=== PATIENT | male | born 1990 | race Caucasian/White ===

== ENCOUNTER 2023-04-17 08:16 | Emergency (ER) | payer SELFPAY ==
[~2023-04-17] VITALS: Ht 182.9 cm; Wt 81.6 kg
[2023-04-17] MEDS ORDERED: KETOROLAC TROMETHAMINE 15 MG/ML VIAL ONE (08:51)
[2023-04-17] MEDS ORDERED: KETOROLAC TROMETHAMINE INJ 30 MG/ML VIAL IV ONE (09:00)
[2023-04-17] MEDS ORDERED: IV NS 0.9% 1,000 ML BAG IV ONE (09:00)
[2023-04-17 09:14] LABS: BASOPHILS % (AUTO) 0.2 % (0.0-2.0); EOSINOPHILS # (AUTO) 0.1 K/uL (0.0-0.7); EOSINOPHILS % (AUTO) 1.2 % (0.0-6.0); HEMATOCRIT 45 % (39-51); HEMOGLOBIN 15.1 g/dL (13.5-17.5); LYMPHOCYTES # (AUTO) 1.5 K/uL (0.8-4.8); LYMPHOCYTES % (AUTO) 18.9 % (20.0-44.0); MEAN CORPUSCULAR HEMOGLOBIN 28 PG (26.0-33.0); MEAN CORPUSCULAR HGB CONC 34 g/dl (31.0-36.0); MEAN CORPUSCULAR VOLUME 83 fL (80-96); MONOCYTES # (AUTO) 0.6 K/uL (0.1-1.30); MONOCYTES % (AUTO) 7.5 % (2.0-12.0); NEUTROPHILS # (AUTO) 5.9 K/uL (1.8-8.9); NEUTROPHILS % (AUTO) 72.2 % (43.0-81.0); PLATELET COUNT (AUTO) 297 K/uL (150-450); RED BLOOD CELL COUNT(AUTO) 5.35 MIL/uL (4.5-6.0); RED CELL DISTRIBUTION WIDTH 13.6 % (11.5-15.0); WHITE BLOOD COUNT (AUTO) 8.1 K/uL (4.3-11.0)
[2023-04-17 09:24] LABS: CALCIUM, SERUM 9.4 mg/dL (8.5-10.1); POTASSIUM 3.8 mmol/L (3.5-5.1)
[2023-04-17 09:29] LABS: ALBUMIN 4.4 g/dL (3.4-5.0); BILIRUBIN,DIRECT 0.2 mg/dL (0.0-0.2); BILIRUBIN,TOTAL 0.9 mg/dL (0.2-1.0); TOTAL PROTEIN, SERUM 8.3 g/dL (6.4-8.2)
[2023-04-17] MEDS ORDERED: TAMS-12 PO (09:52)
[2023-04-17] MEDS ORDERED: TAMSULOSIN 0.4 MG CAP.SR.24H PO ONE (10:00)
[2023-04-17] MEDS ORDERED: TAMSULOSIN 0.4 MG CAP.SR.24H ONE (10:03)
[2023-04-17 10:19] VITALS: BP 133/76; TEMP 97.9; O2SAT 100
== END 2023-04-17 10:21 | disposition home or self-care (01) ==
LOC: ER 08:30
DX: N20.0 Calculus of kidney (principal); Z60.2 Problems related to living alone
CPT/HCPCS: 99285; 74176; 96374; 96361; 85025; 80048; 83690; 80076; 36415; J7030; J1885

== ENCOUNTER 2023-04-19 13:18 | Emergency (ER) | payer MEDICAID ==
[~2023-04-19] VITALS: Ht 182.9 cm; Wt 81.6 kg
[~2023-04-19 13:18] MED LIST: TAMS-12 PO
[2023-04-19] MEDS ORDERED: KETOROLAC TROMETHAMINE INJ 30 MG/ML VIAL ONE ×2 (14:46→15:59)
[2023-04-19] MEDS ORDERED: KETOROLAC TROMETHAMINE INJ 30 MG/ML VIAL IV ONE ×2 (15:00→16:00)
[2023-04-19 15:12] LABS: BASOPHILS % (AUTO) 0.3 % (0.0-2.0); EOSINOPHILS % (AUTO) 0.6 % (0.0-6.0); HEMATOCRIT 42 % (39-51); HEMOGLOBIN 13.6 g/dL (13.5-17.5); LYMPHOCYTES # (AUTO) 1.5 K/uL (0.8-4.8); LYMPHOCYTES % (AUTO) 18.5 % (20.0-44.0); MEAN CORPUSCULAR HEMOGLOBIN 27 PG (26.0-33.0); MEAN CORPUSCULAR HGB CONC 33 g/dl (31.0-36.0); MEAN CORPUSCULAR VOLUME 84 fL (80-96); MONOCYTES # (AUTO) 0.6 K/uL (0.1-1.30); NEUTROPHILS % (AUTO) 73.6 % (43.0-81.0); PLATELET COUNT (AUTO) 259 K/uL (150-450); RED BLOOD CELL COUNT(AUTO) 4.99 MIL/uL (4.5-6.0); RED CELL DISTRIBUTION WIDTH 13.4 % (11.5-15.0); WHITE BLOOD COUNT (AUTO) 8.1 K/uL (4.3-11.0)
[2023-04-19] MEDS ORDERED: IV NS 0.9% 1,000 ML IV ONE (16:00)
[2023-04-19 16:24] LABS: ALBUMIN 3.8 g/dL (3.4-5.0); BILIRUBIN,DIRECT 0.2 mg/dL (0.0-0.2); BILIRUBIN,TOTAL 0.7 mg/dL (0.2-1.0); CALCIUM, SERUM 9.6 mg/dL (8.5-10.1); POTASSIUM 4.2 mmol/L (3.5-5.1)
[2023-04-19 16:25] LABS: APPEARANCE,URINE CLEAR (CLEAR); BILIRUBIN,URINE NEGATIVE (NEGATIVE); BLOOD, URINE 1+ Ery/uL (NEGATIVE); COLOR,URINE YELLOW (YELLOW); KETONES,URINE NEGATIVE (NEGATIVE); LEUKOCYTE ESTERASE ,URINE 2+ (NEGATIVE); NITRITE, URINE NEGATIVE (NEGATIVE); PROTEIN,URINE NEGATIVE (NEGATIVE); UGLUCOSE NEGATIVE (NEGATIVE); UROBILINOGEN,URINE 0.2 EU/dL (0.2)
[2023-04-19] MEDS ORDERED: TAMS-12 PO (16:25)
[2023-04-19] MEDS ORDERED: IBUP-1957 PO (16:25)
[2023-04-19] MEDS ORDERED: ACETAMINOPHEN 325 MG TABLET PO PRN (17:00)
[2023-04-19] MEDS ORDERED: ONDANSETRON HCL/PF 4 MG/2 ML VIAL IVP PRN (17:00)
[2023-04-19] MEDS ORDERED: MAG HYDROX/AL HYDROX/SIMETH 30 ML UDC PO PRN (17:00)
[2023-04-19] MEDS ORDERED: MAGNESIUM HYDROXIDE 30 ML UDC PO PRN (17:00)
[2023-04-19] MEDS ORDERED: IV NS 0.9% 1,000 ML IV PRN (17:00)
[2023-04-19] MEDS ORDERED: ZOLPIDEM TARTRATE 5 MG TABLET PO PRN (17:00)
[2023-04-19] MEDS ORDERED: Z GUARD REMEDY 4 OZ OINT TP PRN (17:00)
[2023-04-19] MEDS ORDERED: CEFTRIAXONE 1 G in IV D5W 50 ML IV SCH (17:30)
[2023-04-19 17:33] LABS: ADD URINE CULTURE YES; BACTERIA,URINE None seen /HPF (None Seen)
[2023-04-19 17:34] LABS: SQUAMOUS EPITHELIAL CELL,UR 0-2 /HPF (None Seen)
[2023-04-19] MEDS ORDERED: HYDR-3980 PO (17:38)
[2023-04-19] MEDS ORDERED: SULF1TAB48 PO (17:38)
[2023-04-19 19:06] VITALS: BP 121/70; TEMP 98.3; O2SAT 100
[2023-04-20] MEDS ORDERED: TAMSULOSIN 0.4 MG CAP.SR.24H PO SCH (09:00)
== END 2023-04-19 19:07 | disposition home or self-care (01) ==
LOC: ER 13:18
DX: N20.0 Calculus of kidney (principal); Z79.899 Other long term (current) drug therapy; Z60.2 Problems related to living alone
CPT/HCPCS: 99285; 74176; 96374; 96361; 96376; 85025; 80048; 87086; 83690; 80076; 81001; 36415; J1885 ×2; J7030